=== PATIENT | female | born 1995 | race Caucasian/White ===

== ENCOUNTER 2017-12-05 17:43 | Emergency (ER) | payer SELFPAY ==
--- NOTE | 2017-12-05 18:45 | Emergency Department Record ---
History of Present Illness - General Chief Complaint: General Stated Complaint: ABDOMINAL PAIN,CHEST PAIN/LISSETTE Time Seen by Provider: 12/05/17 18:37 Source: Patient Mode of Arrival: Ambulatory Limitations: No limitations - History of Present Illness Initial comments: The patient is here due to multiple complaints. She has had sharp L sided chest pain for 2 weeks. The pain is intermittent and worse with movement and twisting. There has been mild SOB with the pain but no cough, fever, chills, or sputum production. The patient does have a hx of mild Asthma and has been using her inhaller more often. She also has been complaining of lower abdominal pain for one year. The pain is intermittent and she was told it was due to cysts in the past. SHe would like to know if the cysts have returned. There has been no nausea, vomiting, diarrhea, dysuria, or vaginal complaints. MD Complaint: Chest and Abdominal pain Onset/Timin -: Year(s) Location: Left, Chest Radiation: Non-Radiating Quality: Sharp Consistency: Intermittent - Related Data Home Medications Medication Instructions Recorded Confirmed Last Taken No Home Med [NO HOME MEDS] 12/05/17 12/05/17 Unknown Allergies Allergy/AdvReac Type Severity Reaction Status Date / Time ketorolac [From Toradol] AdvReac NAUSEA Verified 12/05/17 17:55 Travel Screening - Travel/Exposure Within Last 30 Days Have you traveled within the last 30 days?: No - Travel/Exposure Within Last Year Have you traveled outside the [place] in the last year?: No - Additonal Travel Details Have you been exposed to anyone with a communicable illness?: No - Travel Symptoms Symptom Screening: None Review of Systems Constitutional: Denies: Chills, Fever Eyes: Denies: Eye discharge ENT: Denies: Congestion Respiratory: Denies: Cough, Dyspnea, Hemoptysis Cardiovascular: Reports: Chest pain. Denies: Arrhythmia Endocrine: Denies: Fatigue Gastrointestinal: Reports: Abdominal pain. Denies: Diarrhea, Nausea Genitourinary: Denies: Discharge, Dysuria Musculoskeletal: Denies: Arthralgia Past Medical History - SOCIAL HISTORY Smoking Status: Never smoker Alcohol Use: Occasional Drug Use: None - RESPIRATORY Hx Respiratory Disorders: Yes Hx Asthma: Yes - CARDIOVASCULAR Hx Cardio Disorders: No - NEURO Hx Neuro Disorders: No - GI Hx GI Disorders: No - Hx Genitourinary Disorders: No - ENDOCRINE Hx Endocrine Disorders: No - MUSCULOSKELETAL Hx Musculoskeletal Disorders: No - PSYCH Hx Psych Problems: No - HEMATOLOGY/ONCOLOGY Hx Hematology/Oncology Disorders: No Family Medical History Any Significant Family History?: No Physical Exam - General General Appearance: Alert, Oriented x3, Cooperative, No acute distress - Head Head exam: Atraumatic, Normocephalic, Normal inspection - Eye Eye exam: Normal appearance, PERRL, EOMI - ENT Throat exam: Normal inspection. negative: Tonsillar erythema, Tonsillar exudate - Neck Neck exam: Normal inspection, Full ROM. negative: Tenderness - Respiratory Respiratory exam: Normal lung sounds bilaterally, Chest wall tenderness (The L sided sharp CP is 100% reproducible to palpation.). negative: Decreased breath sounds, Prolonged expiratory, Respiratory distress - Cardiovascular Cardiovascular Exam: Regular rate, Normal rhythm, Normal heart sounds - GI/Abdominal GI/Abdominal exam: Soft, Normal bowel sounds. negative: Organomegaly, Pulsatile mass, Rebound, Rigid, Tenderness - Extremities Extremities exam: Normal inspection, Full ROM, Normal capillary refill. negative: Tenderness Image of Full Body: 1 - Area of L sided CP and tenderness that is 100% reproducible. - Neurological Neurological exam: Alert, Normal gait. negative: Abnormal gait, Motor sensory deficit - Skin Skin exam: negative: Rash Course Vital Signs 12/05/17 17:55 Temperature 98.1 F Pulse Rate 103 H Respiratory 18 Rate Blood Pressure 127/79 Pulse Ox 97 - Reevaluation(s) Reevaluation #1: The patient is doing very well at this time. She is resting comfortably and texting on her phone in no distress. 12/05/17 19:18 Reevaluation #2: The patient is doing very well at this time and is resting comfortably. I did explain to her that her lab tests and evaluation are all WNL's. She is to take Motrin for pain and see her PCP for recheck next week. 12/05/17 20:38 Medical Decision Making - Data Complexity MDM Data: Labs Ordered and/or Reviewed, X-Ray Ordered and/or Reviewed, EKG Ordered and/or Reviewed - Lab Data Result diagrams: 12/05/17 18:55 12/05/17 18:55 - EKG Data -: EKG Interpreted by Me EKG: No Acute Changes, Normal EKG - Radiology Data Radiology results: Report reviewed (CXR: Neg for acute changes.) Disposition Disposition: Discharge Clinical Impression: Chest wall pain Disposition: Home, Self-Care Condition: (2) Stable Instructions: Chest Wall Pain (ED) Additional Instructions: Please take Motrin or Advil for pain and please see a family doctor next week for further workup and evaluation. Return to the ER for any worsening symptoms. Forms: Patient Portal Access Time of Disposition: 20:42 Quality - Quality Measures Quality Measures: N/A - Blood Pressure Screening View Details: Yes Does Patient Have Any of the Following: No Blood Pressure Classification: Pre-Hypertensive BP Reading Systolic Measurement: 127 Diastolic Measurement: 79 Screening for High Blood Pressure: < Pre-Hypertensive BP, F/U Documented > [ G8950] Pre-Hypertensive Follow-up Interventions: Referral to alternative/primary care provider.
[2017-12-05] MEDS ORDERED: IBUPROFEN 600 MG TABLET PO ONE (18:46)
[2017-12-05 19:14] LABS: BASO % 0.3 % (0-6); EOS % 1.2 % (0-6); GRAN % 56.9 % (47-80); HEMATOCRIT 37.6 % (35.0-47.0); HEMOGLOBIN 11.8 gm/dl (11.6-16.0); LYMPH % 36.3 % (16-45); MEAN CELL VOLUME 75.8 fl (81-97); MEAN CORPUSCULAR HEMOGLOBIN 23.8 pg (27-33); MEAN CORPUSCULAR HGB CONC 31.4 g/dl (32-36); MEAN PLATELET VOLUME 10.1 fl (7.4-10.4); MONO % 5.3 % (0-9); PLATELET COUNT 354 K/uL (130-400); RED BLOOD COUNT 4.96 M/uL (3.80-5.40); RED CELL DISTRIBUTION WIDTH 14.2 % (11.5-14.5); WHITE BLOOD COUNT W/O DIFF 9.1 K/uL (4.2-12.2)
[2017-12-05 19:26] LABS: BLOOD UREA NITROGEN 13 mg/dL (6-20); CREATININE 0.6 mg/dL (0.5-0.9); EST GLOMERULAR FILTRATION RATE > 60 mL/min
[2017-12-05 19:27] LABS: TOTAL PROTEIN 7.5 g/dL (6.6-8.7)
[2017-12-05 19:29] LABS: GLUCOSE,RANDOM 102 mg/dL (74-109)
[2017-12-05 19:31] LABS: ALT/SGPT 17 U/L (<33); AST/SGOT 17 U/L (10.0-35.0)
[2017-12-05 19:32] LABS: ALB/GLOB RATIO 1.9 (1.1-1.8); ALBUMIN 4.9 g/dL (4.0-5.0); ALKALINE PHOSPHATASE 83 U/L (35-104); CREATINE PHOSPHOKINASE 122 U/L (26-192)
[2017-12-05 19:33] LABS: CKMB 2.4 ng/mL (<3.77)
[2017-12-05 20:06] LABS: URINE BILIRUBIN NEGATIVE (NEGATIVE); URINE BLOOD NEGATIVE (NEGATIVE); URINE COLOR YELLOW; URINE GLUCOSE (UA) NEGATIVE (NEGATIVE); URINE KETONE NEGATIVE (NEGATIVE); URINE LEUKOCYTE ESTERASE SMALL (NEGATIVE); URINE NITRITE NEGATIVE (NEGATIVE); URINE PROTEIN NEGATIVE (NEGATIVE); URINE UROBILINOGEN 0.2 E.U./dL (0.20 - 1.00)
[2017-12-05 20:09] LABS: URINE APPEARANCE SL CLOUDY
[2017-12-05 20:10] LABS: HCG,QUALITATIVE URINE NEGATIVE (NEGATIVE); URINE BACTERIA 2+; URINE EPITHELIAL CELLS 36 - 50 (FEW); URINE MUCUS LIGHT; URINE RBC 0 - 2 (NONE SEEN)
--- NOTE | 2017-12-07 13:11 | RADIOLOGY REPORT ---
EXAM: CHEST, TWO VIEWS HISTORY: SHARP STABBING LEFT SIDED CHEST PAIN FOR TWO WEEKS. TECHNIQUE: PA and lateral views of the chest were obtained. Comparison: None. FINDINGS: The heart size is normal. No acute infiltrate identified. No pleural effusion or pneumothorax seen. Mild thoracic curve to the right. IMPRESSION: 1. MILD THORACIC CURVE TO THE RIGHT. 2. NO ACUTE INFILTRATE IDENTIFIED. JOB NUMBER: [id number] MTDD
== END 2017-12-05 20:55 | disposition home or self-care (01) ==
LOC: ER 17:43
DX: R07.89 Other chest pain (principal); R10.31 Right lower quadrant pain; R06.02 Shortness of breath
CPT/HCPCS: 71046; 80053; 81001; 81025; 82550; 82553; 84484; 85025; 85379; 93005; 93010; 99284

== ENCOUNTER 2018-01-22 15:53 | Emergency (ER) | payer SELFPAY ==
--- NOTE | 2018-01-22 16:12 | Emergency Department Record ---
History of Present Illness - General Chief complaint: Extremity Problem Stated complaint: LT HAND PAIN SHOOTS UP TO SHOULDER Time Seen by Provider: 01/22/18 16:03 Source: Patient Mode of Arrival: Ambulatory Limitations: No limitations - History of Present Illness Initial comments: The patient is here due to L wrist pain for one day. She was lifting her son yesterday and felt a pop and pain to the L wrist. Since it has been painful and intermittently shoots pain up the L arm. There is no numbness or weakness but there is pain with ROM. She denies any hx of prior injuries or trauma. MD Complaint: Extremity pain Onset/Timin -: Days(s) Location: Left, Other History of Same: No Radiation: Distal Severity scale (1-10): 7 Quality: Aching Consistency: Constant Improves with: Nothing Worsens with: Nothing Associated Symptoms: Denies other symptoms - Related Data Allergies Allergy/AdvReac Type Severity Reaction Status Date / Time ketorolac [From Toradol] AdvReac NAUSEA Verified 01/22/18 16:02 Travel Screening - Travel/Exposure Within Last 30 Days Have you traveled within the last 30 days?: No Review of Systems Constitutional: Denies: Chills, Fever Past Medical History - SOCIAL HISTORY Smoking Status: Never smoker Alcohol Use: None Drug Use: None - RESPIRATORY Hx Respiratory Disorders: Yes Hx Asthma: Yes - CARDIOVASCULAR Hx Cardio Disorders: No - NEURO Hx Neuro Disorders: No - GI Hx GI Disorders: No - Hx Genitourinary Disorders: No - ENDOCRINE Hx Endocrine Disorders: No - MUSCULOSKELETAL Hx Musculoskeletal Disorders: No - PSYCH Hx Psych Problems: No - HEMATOLOGY/ONCOLOGY Hx Hematology/Oncology Disorders: No Family Medical History Any Significant Family History?: No Physical Exam - General General Appearance: Alert, Oriented x3, Cooperative, No acute distress - Head Head exam: Atraumatic, Normocephalic, Normal inspection - Eye Eye exam: Normal appearance - Neck Neck exam: Normal inspection, Full ROM - Extremities Extremities exam: Normal inspection, Full ROM, Normal capillary refill, Tenderness (There is diffuse mid carpal tenderness to palpation on the anterior and posterior surfaces. ), Other (The L hand is NVI.). negative: Joint swelling Image of Full Body: 1 - Area of pain and tenderness. 2 - Area of pain and tenderness. Course Vital Signs 01/22/18 15:59 Temperature 98.6 F Pulse Rate 81 Respiratory 20 Rate Blood Pressure 128/84 Pulse Ox 98 Medical Decision Making - Data Complexity MDM Data: X-Ray Ordered and/or Reviewed - Radiology Data Radiology results: Report reviewed (L wrist: Neg) Disposition Disposition: Discharge Clinical Impression: Sprain of wrist, left Qualifiers: Encounter type: initial encounter Qualified Code(s): S63.502A - Unspecified sprain of left wrist, initial encounter Disposition: Home, Self-Care Condition: (2) Stable Instructions: Wrist Sprain (ED) Additional Instructions: Please wear the wrist splint for a week. Take Tylenol or Motrin for pain and see your family doctor if not better in a week. Forms: Patient Portal Access Time of Disposition: 16:44 Quality - Quality Measures Quality Measures: N/A - Blood Pressure Screening View Details: Yes Does Patient Have Any of the Following: No Blood Pressure Classification: Pre-Hypertensive BP Reading Systolic Measurement: 128 Diastolic Measurement: 84 Screening for High Blood Pressure: < Pre-Hypertensive BP, F/U Documented > [ G8950] Pre-Hypertensive Follow-up Interventions: Referral to alternative/primary care provider.
== END 2018-01-22 16:56 | disposition home or self-care (01) ==
LOC: ER 15:53
DX: S63.502A Unspecified sprain of left wrist, initial encounter (principal); X50.0XXA Overexertion from strenuous movement or load, initial encounter
CPT/HCPCS: 99283